=== PATIENT | female | born 1990 | race Caucasian/White ===

== ENCOUNTER 2019-07-20 08:58 | Inpatient (IN) ==
[2019-07-20] MEDS ORDERED: PENICILLIN G POTASSIUM 6 MU in DEXTROSE 5% 250 ML IV STA (09:35)
[2019-07-20] MEDS ORDERED: OXYTOCIN 30 UNITS/500 ML BAG IV PRN ×3 (09:35→20:40)
--- NOTE | 2019-07-20 09:42 | History & Physical Report ---
Date of Service July 20, 2019 Assessment & Plan (1) Carrier of group B Streptococcus: start pcn (2) Normal labor: fetus category one. expectant management. epidural on demand. pit arom as indicated. Anticipate . (3) with 39 completed weeks gestation: History of Present Illness Chief Complaint: contractions Primary Care Provider: Lissette Oliveira DO Patient is a 29yowf with iup at 39 3/7 weeks who presents to labor and delivery complaining of contractions since 3:30 am. Notes lost some mucous. no vb. +fm. complicated by gbs + culture. labs--O+/ab-/ri/rprnr/hebb-/hiv-/gc/ct-/gtt x 2nl/+gbs/declined genetics. Allergies Allergy/AdvReac Type Severity Reaction Status Date / Time acetaminophen Allergy Verified 07/19/19 13:34 [From Darvocet-N] propoxyphene Allergy Verified 07/19/19 13:34 [From Darvocet-N] Home Medications Home Medications Medication Instructions Recorded Confirmed Type FJC-ewjd-RL-omega 3-fat com #1 27 1 cap PO DAILY cap 06/21/19 07/20/19 History mg-1 mg-300 mg capsule Patient History Medical History History of chicken pox History of chronic cough History of ovarian cyst Surgical History S/P wisdom tooth extraction Family History Father Drinking problem Sister Drinking problem Grandfather (Maternal) Drinking problem Hypertension Grandfather (Paternal) Drinking problem Hypertension Kidney stone Grandmother (Paternal) Breast cancer Hypertension Aunt Breast cancer Mother Hypothyroid Kidney stone Grandmother (Maternal) Diabetes Hypertension Other Dementia Down syndrome Social History Preferred Language: Slovenian Communication Ability: Effective Sport Psychologist Required: No Beliefs That Will Affect Care: None marital status: Current Living Situation: Family Other Information That Helps Us Care for You: No Feels Safe at Home: Yes Safety Concerns: Feels Safe At This Time Smoking Status: Never smoker Hx Alcohol Use: No Hx Substance Use: No 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 History hx of ov cyst, no abnl pap Review of Systems All systems reviewed & are unremarkable except as noted in HPI & below Physical Exam Constitutional: WD/WN, vitals as above uncomfortable with contractions Gastrointestinal (Abdomen): soft, gravid, nt Psychiatric: A+Ox3, euthymic affect Genitourinary: cx--3-4/80/-2 toco--q2-4min efm--130 wtih mod variability, accels to 150s, no decels Results & Data Vital Signs (Past 12 Hours) Vital Signs Temp Pulse Resp BP 07/20/19 09:15 36.8 C 68 18 123/81 07/20/19 09:13 36.8 C Code Status & VTE Plan VTE Prophylaxis Plan VTE Prophylaxis will be ordered: No
[2019-07-20] MEDS: LACTATED RINGER'S 1,000 ML IV PRN ×3 (10:07→15:15)
[2019-07-20] MEDS ORDERED: BUPIVACAINE 0.25% 30 ML VIAL ONE (10:08)
[2019-07-20] MEDS ORDERED: fentaNYL citrate 100 MCG/2 ML VIAL ONE (10:09)
[2019-07-20] MEDS ORDERED: ePHEDrine sulfate 50 MG/ML AMP ONE (10:09)
[2019-07-20] MEDS ORDERED: fentaNYL 2MCG/ML ROPIV 1.25MG/ML 100 ML BAG EPI ONE (10:10)
[2019-07-20 10:31] LABS: Hematocrit (blood only) 37.8 % (37-47); Hemoglobin 13.4 g/dL (12.0-16.0); Mean Corpuscular Volume 90.2 fL (80-100); Mean Platelet Volume 10.2 fL (7.4-10.4); Platelet Count 173 K/uL (130-400); RDW Coefficient of Variation 13.5 % (11.5-14.5); RDW Standard Deviation 44.3 fL (36.4-46.3); Red Blood Count 4.19 M/uL (4.2-5.4); White Blood Count 12.55 K/uL (4.8-10.8)
[2019-07-20 10:39] LABS: Mean Corpuscular Hgb Conc 35.4 g/dL (32-36)
[2019-07-20] MEDS ORDERED: NALBUPHINE HCL INJ 10 MG/ML AMP IV PRN (10:55)
[2019-07-20] MEDS ORDERED: NALOXONE HCL 0.4 MG/1 ML VIAL/CARP IV PRN (10:55)
[2019-07-20] MEDS ORDERED: fentaNYL 2MCG/ML ROPIV 1.25MG/ML 100 ML BAG EPI PRN (10:55)
[2019-07-20] MEDS ORDERED: NALOXONE HCL 1 MG in SODIUM CHLORIDE 0.9% 1000ML 1,000 ML IV PRN (10:55)
[2019-07-20] MEDS ORDERED: ePHEDrine sulfate 50 MG/ML AMP IV PRN (10:55)
[2019-07-20] MEDS ORDERED: DiphenhydrAMINE HCL 50 MG/ML VIAL IV PRN (10:55)
[2019-07-20] MEDS ORDERED: PROMETHAZINE HCL 6.25 MG in SODIUM CHLORIDE 0.9% 50 ML IV PRN (10:55)
[2019-07-20] MEDS ORDERED: ONDANSETRON INJ 2 MG/ML 2 ML VIAL IV PRN ×2 (10:55→20:48)
--- NOTE | 2019-07-20 12:13 | Labor Progress Brief Note ---
Date of Service July 20, 2019 Subjective comfortable after epidural Assessment & Plan (1) Normal labor: arom. fetus category one. expectant management for now. pit if needed. Physical Exam Constitutional: WD/WN, vitals as above Psychiatric: A+Ox3, euthymic affect Genitourinary: cx--3-4/90/-2 arom--clear toco--q2-4min efm--130s with mod varialbity, accels to 150s, no decels Results & Data Vital Signs (Past 12 Hours) Vital Signs Temp Pulse Resp BP Pulse Ox 07/20/19 12:06 68 98 07/20/19 12:03 67 96/53 L 07/20/19 12:01 70 97 07/20/19 11:56 73 99/57 L 100 07/20/19 11:51 75 97 07/20/19 11:46 74 96 07/20/19 11:45 18 07/20/19 11:41 81 97 07/20/19 11:36 83 96 07/20/19 11:33 67 102/56 L 07/20/19 11:31 68 97/58 L 96 07/20/19 11:30 18 07/20/19 11:29 81 97/60 L 07/20/19 11:27 69 98/57 L 07/20/19 11:26 74 96 07/20/19 11:25 77 18 115/56 L 07/20/19 11:23 71 91/50 L 07/20/19 11:21 80 100/55 L 95 07/20/19 11:20 18 07/20/19 11:19 72 92/50 L 07/20/19 11:17 80 96/60 L 07/20/19 11:16 78 96 07/20/19 11:15 76 18 104/59 L 07/20/19 11:13 73 108/61 07/20/19 11:11 93 H 127/87 97 07/20/19 11:09 71 123/85 07/20/19 11:06 70 97 07/20/19 11:01 78 97 07/20/19 10:56 68 91 07/20/19 10:51 62 96 07/20/19 10:50 80 94 07/20/19 10:46 69 100 07/20/19 10:41 77 100 07/20/19 10:36 75 100 07/20/19 10:31 68 100 07/20/19 10:30 18 07/20/19 10:26 80 99 07/20/19 10:00 18 07/20/19 09:30 18 07/20/19 09:15 36.8 C 68 18 123/81 07/20/19 09:13 36.8 C
--- NOTE | 2019-07-20 13:08 | Communication Note ---
Date of Service: July 20, 2019 contractions have spaced since arom. will start pitocin. fetus category one.
--- NOTE | 2019-07-20 13:54 | Anesthesiology Consultation ---
Date of Service July 20, 2019 Assessment & Plan (1) Encounter for pre-operative examination: Chart Review Chart Review: Patient NOT seen in Pre Admission Testing and Acceptable Risk for Labor Epidural Consults Requested none ASA ASA2 Proposed Anesthesia Anesthesia Type: Labor Epidural Risk / Benefits Reviewed With: PT / POA / Parent / Guardian, Accepts Plan and Informed Consent Obtained History Height/Weight Height: 4 ft 11 in Weight: 64.41 kg Allergies Allergy/AdvReac Type Severity Reaction Status Date / Time acetaminophen Allergy Verified 07/19/19 13:34 [From Darvocet-N] propoxyphene Allergy Verified 07/19/19 13:34 [From Darvocet-N] Medications Home Medications Medication Instructions Recorded Confirmed Last Taken VUF-kyih-VJ-omega 3-fat com #1 27 1 cap PO DAILY cap 06/21/19 07/20/19 07/19/19 mg-1 mg-300 mg capsule Active Medications Generic Name Dose Route Start Last Admin Trade Name Freq PRN Reason Stop Dose Admin Lactated Ringer's 1,000 mls @ 125 mls/hr 07/20/19 09:35 07/20/19 13:20 Lr IV 07/22/19 09:34 999 mls/hr .Q8H PRN Infusion L&D Protocol Protocol NPO Date Last Intake of Fluids: 07/19/19 Time Last Intake of Fluids: 11:00 Date Last Intake of Solids: 07/19/19 Time Last Intake of Solids: 20:00 Past Medical History Medical History History of chicken pox History of chronic cough History of ovarian cyst Exercise / Class Metabolic Activity II 4-5 Yardwork/Stairs/Walk up hill Past Family History Family History Father Drinking problem Sister Drinking problem Grandfather (Maternal) Drinking problem Hypertension Grandfather (Paternal) Drinking problem Hypertension Kidney stone Grandmother (Paternal) Breast cancer Hypertension Aunt Breast cancer Mother Hypothyroid Kidney stone Grandmother (Maternal) Diabetes Hypertension Other Dementia Down syndrome Past Surgical History Surgical History S/P wisdom tooth extraction Past Anesthesia History No Hx of Anesthesia Complications and No Family Hx of Anesthesia Complications History of PONV No Hx of PONV and No Hx of Motion Sickness Social History Smoking Status: Never smoker Hx Alcohol Use: No Hx Substance Use: No Physical Exam Vital Signs Last Vital Signs Temp 37.0 C 07/20/19 13:30 Pulse 82 07/20/19 13:51 Resp 18 07/20/19 13:30 BP 114/63 07/20/19 13:48 Pulse Ox 98 07/20/19 13:51 ENMT Mouth: no dentition abnormality Thyromental Distance: > or= 3.5 Finger Breadths Mallampati Class: II Neck normal visual inspection Respiratory normal respiratory effort Auscultation: lungs clear to auscultation bilaterally Cardiovascular Rate/Rhythm: regular rate and regular rhythm Psychiatric Orientation: alert Testing Laboratory Results 07/20/19 10:18
[2019-07-20] MEDS: PENICILLIN G POTASSIUM 3 MU in DEXTROSE 5% 100 ML IV PRN ×2 (14:25→18:39)
--- NOTE | 2019-07-20 15:15 | Labor Progress Brief Note ---
Date of Service July 20, 2019 Subjective comfortable after epidural Assessment & Plan (1) Normal labor: fetus category one. expectant management for now as making slow change. pit if needed. Physical Exam Constitutional: WD/WN, vitals as above Psychiatric: A+Ox3, euthymic affect Genitourinary: cx--5-6/90/-2 toco--q2-4min efm--130s wtih mod variability, accels to 150s, no decels Results & Data Vital Signs (Past 12 Hours) Vital Signs Temp Pulse Resp BP Pulse Ox 07/20/19 15:11 75 98 07/20/19 15:06 79 99 07/20/19 15:03 65 103/66 07/20/19 15:01 76 97 07/20/19 15:00 18 07/20/19 14:56 77 102/67 98 07/20/19 14:51 67 97 07/20/19 14:48 61 102/63 07/20/19 14:46 63 98 07/20/19 14:41 69 98 07/20/19 14:36 64 99 07/20/19 14:34 70 110/62 07/20/19 14:31 72 99 07/20/19 14:30 18 07/20/19 14:26 63 99 07/20/19 14:21 75 97 07/20/19 14:19 68 97/55 L 07/20/19 14:16 73 99 07/20/19 14:11 78 98 07/20/19 14:06 76 98 07/20/19 14:04 81 100/61 07/20/19 14:01 72 98 07/20/19 14:00 18 07/20/19 13:56 76 97 07/20/19 13:51 82 98 07/20/19 13:48 73 114/63 07/20/19 13:46 76 98 07/20/19 13:41 79 116/62 99 07/20/19 13:36 84 100 07/20/19 13:34 91 H 99/67 L 07/20/19 13:31 94 H 100 07/20/19 13:30 37.0 C 18 07/20/19 13:27 61 118/69 07/20/19 13:26 67 100 07/20/19 13:23 64 111/67 07/20/19 13:21 63 104/63 96 07/20/19 13:18 60 52/27 L 07/20/19 13:16 97 H 95 07/20/19 13:11 69 96 07/20/19 13:06 61 96 07/20/19 13:04 71 85/53 L 07/20/19 13:01 63 96 07/20/19 13:00 18 07/20/19 12:56 61 96 07/20/19 12:51 69 97 07/20/19 12:48 65 92/53 L 07/20/19 12:46 69 98 07/20/19 12:41 76 98 07/20/19 12:36 66 99 07/20/19 12:34 68 89/58 L 07/20/19 12:31 71 99 07/20/19 12:30 18 07/20/19 12:26 71 100 07/20/19 12:21 68 91/54 L 98 07/20/19 12:19 37.0 C 18 07/20/19 12:16 70 98 07/20/19 12:11 94 H 96 07/20/19 12:06 68 98 07/20/19 12:03 67 96/53 L 07/20/19 12:01 70 97 07/20/19 12:00 18 07/20/19 11:56 73 99/57 L 100 07/20/19 11:51 75 97 07/20/19 11:46 74 96 07/20/19 11:45 18 07/20/19 11:41 81 97 07/20/19 11:36 83 96 07/20/19 11:33 67 102/56 L 07/20/19 11:31 68 97/58 L 96 07/20/19 11:30 18 07/20/19 11:29 81 97/60 L 07/20/19 11:27 69 98/57 L 07/20/19 11:26 74 96 07/20/19 11:25 77 18 115/56 L 07/20/19 11:23 71 91/50 L 07/20/19 11:21 80 100/55 L 95 07/20/19 11:20 18 07/20/19 11:19 72 92/50 L 07/20/19 11:17 80 96/60 L 07/20/19 11:16 78 96 07/20/19 11:15 76 18 104/59 L 07/20/19 11:13 73 108/61 07/20/19 11:11 93 H 127/87 97 07/20/19 11:09 71 123/85 07/20/19 11:06 70 97 07/20/19 11:01 78 97 07/20/19 10:56 68 91 07/20/19 10:51 62 96 07/20/19 10:50 80 94 07/20/19 10:46 69 100 07/20/19 10:41 77 100 07/20/19 10:36 75 100 07/20/19 10:31 68 100 07/20/19 10:30 18 07/20/19 10:26 80 99 07/20/19 10:00 18 07/20/19 09:30 18 07/20/19 09:15 36.8 C 68 18 123/81 07/20/19 09:13 36.8 C
--- NOTE | 2019-07-20 17:59 | Labor Progress Brief Note ---
Date of Service July 20, 2019 Subjective comfortable Assessment & Plan (1) Normal labor: Labor down. Fetus reassuring. anticipate . Physical Exam Constitutional: WD/WN, vitals as above Psychiatric: A+Ox3, euthymic affect Genitourinary: cx--9/100/0 toco--q2-4min efm--130s wtih mod variablility, +accels, rare variable Results & Data Vital Signs (Past 12 Hours) Vital Signs Temp Pulse Resp BP Pulse Ox 07/20/19 17:56 89 94 07/20/19 17:51 78 97 07/20/19 17:48 72 103/54 L 07/20/19 17:46 84 98 07/20/19 17:41 86 97 07/20/19 17:36 90 98 07/20/19 17:34 81 110/67 07/20/19 17:31 85 98 07/20/19 17:26 83 98 07/20/19 17:21 85 97 07/20/19 17:19 87 115/64 07/20/19 17:16 97 H 100 07/20/19 17:11 86 98 07/20/19 17:06 82 98 07/20/19 17:04 75 121/77 07/20/19 17:01 87 97 07/20/19 17:00 36.8 C 20 07/20/19 16:56 83 99 07/20/19 16:51 79 98 07/20/19 16:48 75 116/75 07/20/19 16:46 82 99 07/20/19 16:41 98 H 96 07/20/19 16:36 86 100 07/20/19 16:33 75 116/69 07/20/19 16:31 85 98 07/20/19 16:26 81 96 07/20/19 16:21 100 H 98 07/20/19 16:19 74 108/63 07/20/19 16:16 73 97 07/20/19 16:11 69 98 07/20/19 16:06 69 98 07/20/19 16:04 76 100/66 07/20/19 16:01 74 97 07/20/19 16:00 20 07/20/19 15:56 77 98 07/20/19 15:51 82 96 07/20/19 15:48 68 106/68 07/20/19 15:46 76 97 07/20/19 15:41 75 97 07/20/19 15:36 64 96 07/20/19 15:34 65 107/64 07/20/19 15:31 65 96 07/20/19 15:30 20 07/20/19 15:26 67 97 07/20/19 15:21 63 96 07/20/19 15:19 62 111/66 07/20/19 15:16 65 98 07/20/19 15:15 36.5 C 20 07/20/19 15:11 75 98 07/20/19 15:06 79 99 07/20/19 15:03 65 103/66 07/20/19 15:01 76 97 07/20/19 15:00 18 07/20/19 14:56 77 102/67 98 07/20/19 14:51 67 97 07/20/19 14:48 61 102/63 07/20/19 14:46 63 98 07/20/19 14:41 69 98 07/20/19 14:36 64 99 07/20/19 14:34 70 110/62 07/20/19 14:31 72 99 07/20/19 14:30 18 07/20/19 14:26 63 99 07/20/19 14:21 75 97 07/20/19 14:19 68 97/55 L 07/20/19 14:16 73 99 07/20/19 14:11 78 98 07/20/19 14:06 76 98 07/20/19 14:04 81 100/61 07/20/19 14:01 72 98 07/20/19 14:00 18 07/20/19 13:56 76 97 07/20/19 13:51 82 98 07/20/19 13:48 73 114/63 07/20/19 13:46 76 98 07/20/19 13:41 79 116/62 99 07/20/19 13:36 84 100 07/20/19 13:34 91 H 99/67 L 07/20/19 13:31 94 H 100 07/20/19 13:30 37.0 C 18 07/20/19 13:27 61 118/69 07/20/19 13:26 67 100 07/20/19 13:23 64 111/67 07/20/19 13:21 63 104/63 96 07/20/19 13:18 60 52/27 L 07/20/19 13:16 97 H 95 07/20/19 13:11 69 96 07/20/19 13:06 61 96 07/20/19 13:04 71 85/53 L 07/20/19 13:01 63 96 07/20/19 13:00 18 07/20/19 12:56 61 96 07/20/19 12:51 69 97 07/20/19 12:48 65 92/53 L 07/20/19 12:46 69 98 07/20/19 12:41 76 98 07/20/19 12:36 66 99 07/20/19 12:34 68 89/58 L 07/20/19 12:31 71 99 07/20/19 12:30 18 07/20/19 12:26 71 100 07/20/19 12:21 68 91/54 L 98 07/20/19 12:19 37.0 C 18 07/20/19 12:16 70 98 07/20/19 12:11 94 H 96 07/20/19 12:06 68 98 07/20/19 12:03 67 96/53 L 07/20/19 12:01 70 97 07/20/19 12:00 18 07/20/19 11:56 73 99/57 L 100 07/20/19 11:51 75 97 07/20/19 11:46 74 96 07/20/19 11:45 18 07/20/19 11:41 81 97 07/20/19 11:36 83 96 07/20/19 11:33 67 102/56 L 07/20/19 11:31 68 97/58 L 96 07/20/19 11:30 18 07/20/19 11:29 81 97/60 L 07/20/19 11:27 69 98/57 L 07/20/19 11:26 74 96 07/20/19 11:25 77 18 115/56 L 07/20/19 11:23 71 91/50 L 07/20/19 11:21 80 100/55 L 95 07/20/19 11:20 18 07/20/19 11:19 72 92/50 L 07/20/19 11:17 80 96/60 L 07/20/19 11:16 78 96 07/20/19 11:15 76 18 104/59 L 07/20/19 11:13 73 108/61 07/20/19 11:11 93 H 127/87 97 07/20/19 11:09 71 123/85 07/20/19 11:06 70 97 07/20/19 11:01 78 97 07/20/19 10:56 68 91 07/20/19 10:51 62 96 07/20/19 10:50 80 94 07/20/19 10:46 69 100 07/20/19 10:41 77 100 07/20/19 10:36 75 100 07/20/19 10:31 68 100 07/20/19 10:30 18 07/20/19 10:26 80 99 07/20/19 10:00 18 07/20/19 09:30 18 07/20/19 09:15 36.8 C 68 18 123/81 07/20/19 09:13 36.8 C
--- NOTE | 2019-07-20 19:58 | Anesthesia Procedure Note ---
Date of Service July 20, 2019 Anesthesia Post Epidural Note Vital Signs Vital Signs: Temp Pulse Resp BP Pulse Ox 36.8 C 102 H 20 109/64 95 07/20/19 17:00 07/20/19 19:56 07/20/19 19:00 07/20/19 19:19 07/20/19 19:56 Pain Intensity Lower Back: Pain Intensity: 0 Notes Mental Status: alert / awake / arousable Nausea / Vomiting: adequately controlled Pain: adequately controlled Airway Patency, RR, SpO2: stable & adequate BP & HR: stable & adequate Hydration State: stable & adequate Neuraxial Anesthesia: was administered and sensory block is resolving Anesthetic Complications: no major complications apparent and Pt Satisfied with anesthetic care Epidural: Removed without complications and With tip intact
[2019-07-20] MEDS ORDERED: METHYLERGONOVINE MALEATE 0.2 MG/ML AMP ONE (20:07)
[2019-07-20] MEDS ORDERED: ACETAMINOPHEN 325 MG TAB PO PRN (20:29)
--- NOTE | 2019-07-20 20:36 | Delivery Summary ---
Vaginal Delivery Summary Date of Service July 20, 2019 Vaginal Delivery Summary Pre-operative Diagnosis: at 39 weeks labor Post-operative Diagnosis: same Procedure: epidural arom second degree laceration repair EBL: 350cc Anesthesia: epidural Procedure: The patient pushed for 20 minutes to deliver a viable male infant in tom position. The nose and mouth were bulb suctioned on the perineum and the rest of the infant was then delivered without difficulty. The baby was vigorous. The nose and mouth were again bulb suctioned. The Cord was clamped and cut and then the baby placed on the maternal abdomen as the cord was short. Cord blood obtained. Placenta delivered spontaneous, intact with a three vessel cord. Cervix/sulci/rectum were intact. A second degree perineal laceration was repaired in the normal standard fashion. Hemostasis obtained with dilute pitocin and fundal massage. Apgars were 9/10. Mother and baby doing well at the end of the delivery.
[2019-07-20] MEDS ORDERED: SUPERCREAM 0.870% 15 GM JAR EXT PRN (20:40)
[2019-07-20] MEDS ORDERED: DIPHTHERIA/TETANUS/PERTUSSIS 0.5 ML SYR/VIAL IM ONE (20:40)
[2019-07-20] MEDS ORDERED: BENZOCAINE 20% AER SPR 82.5 GM CAN EXT PRN (20:40)
[2019-07-20] MEDS ORDERED: HYDROCORTISONE ACETATE 25 MG SUPP PR PRN (20:40)
[2019-07-20] MEDS ORDERED: BISACODYL 10 MG SUPP PR PRN (20:40)
[2019-07-20] MEDS ORDERED: ONDANSETRON INJ 2 MG/ML 2 ML VIAL ONE (20:45)
[2019-07-20] MEDS: DOCUSATE SODIUM 100 MG CAP PO SCH (22:03)
[2019-07-20] MEDS: IBUPROFEN 600 MG TAB PO PRN (22:39)
[2019-07-21] MEDS: IBUPROFEN 600 MG TAB PO PRN ×3 (04:43→21:38)
--- NOTE | 2019-07-21 06:51 | Obstetrical Progress Note ---
Date of Service <Tre Jarrett DO - Last Filed: 07/21/19 07:30> July 21, 2019 Assessment & Plan <DO Donny Hernandez Last Filed: 07/21/19 07:30> (1) with 39 completed weeks gestation: PPD#1 - Vital Signs reviewed and WNL. (Tmax at 37.2) Hemoglobin pending this AM. - Blood Type: O-, GBS+ - Pt is doing well clinically. - Encourage Ambulation, Monitor and Control pain with Motrin PRN, Resume regular diet, Monitor Lochia - Encourage Breast Feeding. Present on Admission?: Yes Day #:: 1 Subjective <DO Donny Hernandez Last Filed: 07/21/19 07:30> Ambulation: ambulating normally Voiding: no voiding problems Passing Gas:: Yes Diet Tolerance:: regular diet Lochia:: Moderate Feeding Type:: breast feeding Current Pain Level(1-10): 1 (improves with analgesics ) Patient is a 29 year old PPD1 that states she is doing well today. She notes minimal pain that resolves with analgesics. She has no complaints at this time. Constitutional: no fever and no chills Respiratory: no cough, no dyspnea and no wheezing Cardiovascular: no chest pain, no dyspnea, no palpitations, no edema and no calf pain Breast: no breast pain Gastrointestinal: no abdominal pain, no nausea and no vomiting Genitourinary (female): no dysuria and no difficulty urinating Neurologic: no headache(s) Physical Exam <DO Donny Hernandez Last Filed: 07/21/19 07:30> Constitutional WD/WN, vitals as above Respiratory normal respiratory effort, lungs clear to auscultation Cardiovascular RRR, no murmur, no edema Extremities: no calf tenderness and no edema Gastrointestinal (Abdomen) Inspection/Auscultation: abdomen normal to inspection and normal bowel sounds; abdomen not distended Genitourinary OB Exam Abdomen: + fundal height Fundus: + firm and + relation to umbilicus (1cm below); not tender and not boggy Results & Data <DO Donny Hernandez Last Filed: 07/21/19 07:30> Vital Signs (Past 12 Hours) Vital Signs Temp Pulse Pulse Resp BP BP Pulse Ox 07/21/19 04:25 36.5 C 70 18 107/68 07/20/19 23:05 36.7 C 66 18 125/76 07/20/19 22:20 36.7 C 72 18 117/74 07/20/19 22:03 37.1 C 20 07/20/19 21:57 64 124/74 07/20/19 21:48 84 120/71 07/20/19 21:33 68 16 122/64 07/20/19 21:21 76 126/72 07/20/19 21:03 80 18 132/60 07/20/19 20:48 72 20 129/65 07/20/19 20:46 81 129/63 07/20/19 20:44 123 H 147/83 H 07/20/19 20:33 82 18 126/74 07/20/19 20:18 37.2 C 86 20 114/66 07/20/19 20:13 109 H 116/73 07/20/19 20:11 99 H 95 07/20/19 20:06 108 H 121/61 94 07/20/19 20:01 114 H 93 07/20/19 19:56 102 H 95 07/20/19 19:51 117 H 96 07/20/19 19:46 117 H 98 07/20/19 19:41 113 H 100 07/20/19 19:36 137 H 97 07/20/19 19:31 126 H 96 07/20/19 19:30 20 07/20/19 19:26 102 H 97 07/20/19 19:21 98 H 96 07/20/19 19:19 92 H 109/64 07/20/19 19:16 100 H 95 07/20/19 19:11 94 H 95 07/20/19 19:06 72 95 07/20/19 19:03 80 112/67 07/20/19 19:01 77 94 07/20/19 19:00 36.8 C 20 07/20/19 18:56 77 94 07/20/19 18:51 90 94 07/20/19 18:49 73 110/61 07/20/19 18:46 79 95 Laboratory Results Abnormal lab results 07/20/19 Range/Units 10:18 WBC 12.55 H (4.8-10.8) K/uL RBC 4.19 L (4.2-5.4) M/uL Medications Administered Current Inpatient Medications Acetaminophen (Tylenol) 650 mg PO Q6H PRN PRN Reason: Pain/MELGAR/Fever Stop: 08/19/19 20:28 Benzocaine (Dermoplast Pain Relieving Baker) 1 appln EXT PRN PRN PRN Reason: Perineal Discomfort Stop: 08/19/19 20:39 Last Admin: 07/20/19 21:59 Dose: 82.5 appln Documented by: Bisacodyl (Dulcolax) 5 mg PO 1999 [facility] Stop: 07/21/19 20:01 Bisacodyl (Dulcolax) 10 mg [place] DAILY PRN PRN Reason: No BM on 2nd post- day Stop: 08/19/19 20:39 Cocaine HCl (Supercream 0.870%) 1 gm EXT BID PRN PRN Reason: Hemorrhoidal Inflammation Stop: 08/03/19 20:39 Docusate Sodium (Colace) 100 mg PO DAILY@08,21 [facility] Stop: 08/19/19 20:59 Last Admin: 07/20/19 22:03 Dose: 100 mg Documented by: Hydrocortisone (Anusol Hc) 25 mg [place] BID PRN PRN Reason: Hemorrhoidal Inflammation Stop: 08/19/19 20:39 Oxytocin (Pitocin) 30 units in 500 mls @ 333.333 mls/hr IV .Q1H30M PRN; Protocol PRN Reason: Bleeding Control Stop: 08/19/19 20:39 Ibuprofen (Motrin) 600 mg PO Q4H PRN PRN Reason: Pain/MELGAR/Cramping/Fever Stop: 08/19/19 20:28 Last Admin: 07/21/19 04:43 Dose: 600 mg Documented by: Ondansetron HCl (Zofran) 4 mg IV Q6H PRN PRN Reason: Nausea Stop: 08/19/19 20:47 Prenat Multivit/Director Of Video Analytics/Iron/Folic Ac ( Vitamin) 1 tab PO DAILY@08 [facility] Stop: 08/20/19 07:59 <Madison Graham MD, FACOG - Last Filed: 07/21/19 07:34> Co-Signing Physician Notes Resident Physician Supervision Note: I interviewed and examined the patient. Discussed with Dr. Jarrett and agree with findings and plan as documented in the note. Any exceptions or clarifications are listed here: Doing well. Plan d/c tomorrow. Documented By: Madison Graham MD, FACOG Resident Activity Tracking <Tre Jarrett DO - Last Filed: 07/21/19 07:30> Resident Involvement: Resident Care Provided Care Provided: OB Delivery
[2019-07-21 08:09] LABS: Hematocrit (blood only) 34.4 % (37-47); Hemoglobin 11.7 g/dL (12.0-16.0)
[2019-07-21] MEDS: DOCUSATE SODIUM 100 MG CAP PO SCH ×2 (08:23→20:06)
[2019-07-21] MEDS: PRENATAL VITAMIN 1 TAB PO SCH (08:23)
[2019-07-21] MEDS ORDERED: BISACODYL 5 MG TABEC PO SCH (20:00)
--- NOTE | 2019-07-22 06:30 | Obstetrical Progress Note ---
Date of Service <Tre Jarrett DO - Last Filed: 07/22/19 06:49> July 22, 2019 Assessment & Plan <DO Donny Hernandez Last Filed: 07/22/19 06:49> (1) with 39 completed weeks gestation: -PPD#2 -Vitals reviewed, WNL (Tmax 37.0) - GBS +, Blood Type O+ - Clinically stable. - Feels well today. Eating well, voiding well, ambulating well. - Pain well controlled. - Routine post- care - Counseled on discharge today. Present on Admission?: Yes Day #:: 2 Subjective <Tre Jarrett DO - Last Filed: 07/22/19 06:49> Ambulation: ambulating normally Voiding: no voiding problems Passing Gas:: Yes Diet Tolerance:: regular diet Lochia:: Moderate Feeding Type:: breast feeding Current Pain Level(1-10): 2 (improves with analgesics ) Patient is a 29 PPD#2. Patient states that she is feeling well today and that her pain is well controlled. She has no other complaints at this time. Constitutional: no fever and no chills Respiratory: no cough, no dyspnea and no wheezing Cardiovascular: no chest pain, no dyspnea, no palpitations, no edema and no calf pain Breast: no breast pain Gastrointestinal: no abdominal pain, no nausea and no vomiting Genitourinary (female): no dysuria and no difficulty urinating Neurologic: no headache(s) Physical Exam <DO Donny Hernandez Last Filed: 07/22/19 06:49> Constitutional WD/WN, vitals as above Respiratory normal respiratory effort, lungs clear to auscultation Cardiovascular Rate/Rhythm: regular rate and regular rhythm Heart Sounds: normal S1 and normal S2; no click, no gallop, no murmur and no cardiac rub Extremities: no calf tenderness and no edema Gastrointestinal (Abdomen) Inspection/Auscultation: abdomen normal to inspection and normal bowel sounds Percussion/Palpation: abdomen soft; abdomen nontender Genitourinary OB Exam Abdomen: + fundal height Fundus: + firm and + relation to umbilicus (2 cm below); not tender and not boggy Results & Data <DO Donny Hernandez Last Filed: 07/22/19 06:49> Vital Signs (Past 12 Hours) Vital Signs Temp Pulse Resp BP Pulse Ox 07/21/19 23:22 37.0 C 63 18 107/66 07/21/19 20:30 36.6 C 68 18 120/77 98 Laboratory Results Abnormal lab results 07/21/19 Range/Units 07:32 Hgb 11.7 L (12.0-16.0) g/dL Hct 34.4 L (37-47) % Medications Administered Current Inpatient Medications Acetaminophen (Tylenol) 650 mg PO Q6H PRN PRN Reason: Pain/MELGAR/Fever Stop: 08/19/19 20:28 Benzocaine (Dermoplast Pain Relieving [place]) 1 appln EXT PRN PRN PRN Reason: Perineal Discomfort Stop: 08/19/19 20:39 Last Admin: 07/20/19 21:59 Dose: 82.5 appln Documented by: Bisacodyl (Dulcolax) 10 mg NM DAILY PRN PRN Reason: No BM on 2nd post- day Stop: 08/19/19 20:39 Cocaine HCl (Supercream 0.870%) 1 gm EXT BID PRN PRN Reason: Hemorrhoidal Inflammation Stop: 08/03/19 20:39 Docusate Sodium (Colace) 100 mg PO DAILY@08, [facility] Stop: 08/19/19 20:59 Last Admin: 07/21/19 20:06 Dose: 100 mg Documented by: Hydrocortisone (Anusol Hc) 25 mg NM BID PRN PRN Reason: Hemorrhoidal Inflammation Stop: 08/19/19 20:39 Oxytocin (Pitocin) 30 units in 500 mls @ 333.333 mls/hr IV .Q1H30M PRN; Protocol PRN Reason: Bleeding Control Stop: 08/19/19 20:39 Ibuprofen (Motrin) 600 mg PO Q4H PRN PRN Reason: Pain/MELGAR/Cramping/Fever Stop: 08/19/19 20:28 Last Admin: 07/21/19 21:38 Dose: 600 mg Documented by: Ondansetron HCl (Zofran) 4 mg IV Q6H PRN PRN Reason: Nausea Stop: 08/19/19 20:47 Prenat Multivit/[place]/Iron/Folic Ac ( Vitamin) 1 tab PO DAILY@08 [facility] Stop: 08/20/19 07:59 Last Admin: 07/21/19 08:23 Dose: 1 tab Documented by: <Ayaka Freeman MD, FACOG - Last Filed: 07/22/19 07:07> Co-Signing Physician Notes Resident Physician Supervision Note: I was present with Dr. Jarrett during the history and exam. I discussed the case with the resident and agree with the findings and plan as documented in the note. Any exceptions or clarifications are listed here: [None] Documented By: Ayaka Freeman MD, FACOG Resident Activity Tracking <Tre Jarrett DO - Last Filed: 07/22/19 06:49> Resident Involvement: Resident Care Provided Care Provided: OB Delivery
[2019-07-22] MEDS: PRENATAL VITAMIN 1 TAB PO SCH (09:36)
[2019-07-22] MEDS: DOCUSATE SODIUM 100 MG CAP PO SCH (09:36)
[2019-07-22] MEDS: IBUPROFEN 600 MG TAB PO PRN (09:36)
== END 2019-07-22 16:00 | disposition home or self-care (01) | DRG 807 ==
LOC: OPB 08:58 → 4S1 08:58 → 4S2 22:05

== ENCOUNTER 2022-10-09 03:42 | Inpatient (IN) ==
[2022-10-09] MEDS ORDERED: OXYTOCIN 30 UNITS/500 ML BAG IV PRN (03:58)
[2022-10-09] MEDS ORDERED: LIDOCAINE 1% LOCAL 20 ML VIAL INFIL PRN (03:58)
[2022-10-09] MEDS ORDERED: LACTATED RINGER'S 1,000 ML IV PRN (03:58)
[2022-10-09] MEDS ORDERED: BUPIVACAINE 0.25% 30 ML VIAL ONE (04:16)
[2022-10-09] MEDS ORDERED: LIDOCAINE 2%/EPINEPHRINE 1:200,000 20 ML SDV ONE (04:16)
[2022-10-09] MEDS ORDERED: fentaNYL citrate 100 MCG/2 ML VIAL ONE (04:16)
[2022-10-09] MEDS ORDERED: ePHEDrine sulfate 50 MG/ML AMP ONE (04:16)
[2022-10-09] MEDS ORDERED: SODIUM CHLORIDE 0.9% INJ 10 ML VIAL ONE (04:16)
[2022-10-09] MEDS ORDERED: fentaNYL 2MCG/ML ROPIVACAINE 1.25MG/ML 100 ML BAG EPI ONE (04:17)
[2022-10-09 04:35] LABS: Hematocrit (blood only) 35.5 % (34.1-44.9); Hemoglobin 12.4 g/dl (12.0-16.0); Mean Corpuscular Hemoglobin 30.3 pg (25.0-34.0); Mean Corpuscular Hgb Conc 34.9 g/dL (32.0-36.0); Mean Corpuscular Volume 86.8 fL (80.0-100.0); Mean Platelet Volume 10.7 fL (9.4-12.3); Platelet Count 246 K/uL (130-400); RDW Coefficient of Variation 12.8 % (11.5-14.5); Red Blood Count 4.09 M/uL (3.93-5.22); White Blood Count 8.69 K/ul (4.8-10.8)
[2022-10-09] MEDS ORDERED: ACETAMINOPHEN 325 MG TAB PO PRN (05:27)
[2022-10-09] MEDS ORDERED: HYDROCORTISONE ACETATE 25 MG SUPP PR PRN (05:27)
[2022-10-09] MEDS ORDERED: DIPHTHERIA/TETANUS/PERTUSSIS 0.5 ML SYR/VIAL IM ONE (05:27)
[2022-10-09] MEDS ORDERED: BENZOCAINE 20% AER SPR 82.5 GM CAN EXT PRN (05:27)
[2022-10-09] MEDS ORDERED: oxyCODONE/ACETAMINOPHEN 5mg/325mg TAB PO PRN (05:27)
--- NOTE | 2022-10-09 05:30 | Delivery Summary ---
Vaginal Delivery Summary Date of Service October 09, 2022 Vaginal Delivery Summary DIAGNOSES: 1. [place] intrauterine at 38w4d gestation. 2. Spontaneous onset of labor. 3. Group B Streptococcus Neg. PROCEDURE: Spontaneous vaginal delivery without laceration. SURGEON: Hiwot Taylor MD. TOBACCO STEMMER MACHINE: None. ESTIMATED BLOOD LOSS: 100 mL. COMPLICATIONS: None. PLACENTA: Spontaneous and intact with a 3-vessel cord. DISPOSITION: Stable to labor and delivery. DESCRIPTION: The patient called at 2am to complain of contractions every 5-6 minutes. She was advised that she could present to L&D for exam, or that she likely had time to stay at home a bit longer if she wanted; either was fine. I notified L&D nursing staff to pull her records for her upcoming arrival. The patient did indicate she would stay home to shower, then likely come in for exam. I was notified of the patient's arrival by nursing staff at around 4:30am, at which time they found her to be 5cm dilated, evidently vertex, and very painful, requesting epidural. The plan was for patient to be admitted, given an epidural, and then re-examined by . As Dr. Philip was arriving to provide the epidural, the patient's water broke, and she immediately spontaneously bore down. I was called by nursing staff to come to the bedside, but even though I rushed from my call room just down the [place], baby was fully delivered with that initial spontaneous push. Mom was holding baby, wrapped in a towel and crying, with cord still attached, as I entered the room. I gowned and gloved, placed a clean under-drape, and clamped the cord for FOB to cut. The placenta delivered spontaneously with gentle cord traction, and was intact with a 3vc. Perineum and vagina were examined and found to be free of any lacerations. The fundus was firm below the umbilicus, and lochia was minimal, w ith approximately 100cc of EBL visible pooled below the patient on the clean drape. Very little unmeasured additional EBL had occurred prior to that per nursing, so 100cc was recorded as EBL for delivery. The patient was offered IV pain control or the option to receive percocet and topical dermoplast, and she elected the latter. When I departed the room, both mom and baby were in good condition. [facility] [place] Vaginal Delivery Charge Vaginal Delivery Codes: 65361 global code for the antepartum, delivery, and post-
[2022-10-09] MEDS: DOCUSATE SODIUM 100 MG CAP PO SCH ×2 (08:41→21:04)
[2022-10-09] MEDS ORDERED: Flu Vaccine (Fluarix) 0.5mL SYR (Standard Dose) IM ONE (09:00)
[2022-10-09] MEDS: IBUPROFEN 600 MG TAB PO PRN ×3 (12:40→21:39)
[2022-10-10 06:23] LABS: Hematocrit (blood only) 29.5 % (34.1-44.9); Mean Corpuscular Hemoglobin 29.9 pg (25.0-34.0); Mean Corpuscular Hgb Conc 33.9 g/dL (32.0-36.0); Mean Corpuscular Volume 88.1 fL (80.0-100.0); Mean Platelet Volume 10.8 fL (9.4-12.3); Platelet Count 155 K/uL (130-400); RDW Coefficient of Variation 13.2 % (11.5-14.5); RDW Standard Deviation 41.8 fL (36.4-46.3); Red Blood Count 3.35 M/uL (3.93-5.22); White Blood Count 9.98 K/ul (4.8-10.8)
--- NOTE | 2022-10-10 07:54 | Obstetrical Progress Note ---
Date of Service October 10, 2022 Assessment & Plan (1) Encounter for care and examination after delivery: Plan stable, ready for dc home, breast/ri. instructions reviewed. f/u 6 wk pp check. Day #:: 1 Subjective Ambulation: ambulating normally Voiding: no voiding problems Diet Tolerance:: regular diet Lochia:: Small Feeding Type:: breast feeding denies pain complaints. Constitutional: + as per Subjective / HPI Physical Exam Constitutional WD/WN, vitals as above Respiratory normal respiratory effort, lungs clear to auscultation Cardiovascular Rate/Rhythm: regular rate and regular rhythm Gastrointestinal (Abdomen) Inspection/Auscultation: abdomen normal to inspection Percussion/Palpation: abdomen soft Fundus firm 2cm down Musculoskeletal nt calves no edema Neurologic grossly normal Psychiatric A+Ox3, euthymic affect Results & Data ([facility]) Vital Signs (Past 12 Hours) Vital Signs Temp Pulse Resp BP O2 Del Method 10/10/22 05:00 98.1 F 55 L 16 125/81 Room Air 10/10/22 00:50 98.4 F 59 L 16 108/68 Room Air
[2022-10-10] MEDS: DOCUSATE SODIUM 100 MG CAP PO SCH (08:13)
[2022-10-10] MEDS: IBUPROFEN 600 MG TAB PO PRN (08:13)
[2022-10-10] MEDS ORDERED: MEASLES, MUMPS & RUBELLA VIRUS VIAL SQ ONE (09:45)
== END 2022-10-10 13:12 | disposition home or self-care (01) | DRG 807 ==
LOC: OPB 03:42 → 4S1 03:49 → 4E2 08:31